=== PATIENT | female | born 1975 | race Caucasian/White ===

== ENCOUNTER 2016-09-05 15:36 | Observation (INO) | payer BC ==
[~2016-09-05 15:36] MED LIST: ADVIN50050 INH; ALBU1AER9 INH; DEXL60CA4 PO; LEVO25TA PO; NRN100 PO; PROM25TA16 PO; ZNTT/150 PO
[2016-09-05] MEDS ORDERED: LACTATED RINGER'S 1000ML 1,000 ML IV SCH ×2 (16:00→19:15)
[2016-09-05] MEDS ORDERED: LACTATED RINGER'S 1000ML 500 ML IV ONE (16:00)
[2016-09-05] MEDS ORDERED: MoRPHine SULFATE 2 MG/ML CARP IV STA (16:01)
[2016-09-05 16:12] LABS: URINE APPEARANCE CLEAR (CLEAR); URINE BILIRUBIN NEG (NEG); URINE COLOR YELLOW; URINE EPITHELIAL CELL AUTO >30 /lpf (0-5); URINE NITRITE NEG (NEG); URINE PH 6.5 (4.5-7.5); URINE SPECIFIC GRAVITY 1.014 (1.000-1.030); UROBILINOGEN NEG (NEG); ZZUR CULT IF INDIC CLEAN CATCH NO
[2016-09-05 16:13] LABS: MANUAL MICROSCOPIC REQUIRED? NO; REVIEW REQ? NO
[2016-09-05] MEDS ORDERED: NIFEdipine 10 MG CAP PO STA ×2 (16:35→18:10)
[2016-09-05 16:36] LABS: BASO % 0.1 %; BASO ABS # 0.01 K/uL (0-0.2); EOS % 0.3 %; HEMATOCRIT 34.3 % (37-47); IG% 0.3 %; LYMPH % 10.7 %; LYMPH ABS # 1.97 K/uL (1.2-3.4); MEAN CELL VOLUME 79.4 fL (80-100); MEAN CORPUSCULAR HEMOGLOBIN 25.9 pg (25-34); MEAN PLATELET VOLUME 9.3 fL (7.4-10.4); MONO % 6.1 %; NEUT % 82.5 %; PLATELET COUNT 360 K/uL (130-400); RED BLOOD COUNT 4.32 M/uL (4.2-5.4); WHITE BLOOD COUNT 18.34 K/uL (4.8-10.8)
[2016-09-05 16:40] LABS: COMPLETE YES; MEAN CORPUSCULAR HGB CONC 32.7 g/dl (32-36)
[2016-09-05] MEDS ORDERED: NIFEdipine 10 MG CAP ONE ×2 (16:45→18:06)
[2016-09-05] MEDS ORDERED: MoRPHine SULFATE 4 MG/ML 1 ML CARP\\VIAL SQ STA (17:00)
[2016-09-05 17:08] LABS: PARTIAL THROMBOPLASTIN RATIO 1.3; PROTHROMBIN TIME (PATIENT) 10.7 SECONDS (9.0-12.0)
[2016-09-05 17:17] LABS: ALB/GLOB RATIO 0.5 (0.9-2); ALKALINE PHOSPHATASE 115 U/L (45-117); ALT/SGPT 23 U/L (12-78); AST/SGOT 16 U/L (15-37); BLOOD UREA NITROGEN 10 mg/dl (7-18); BUN/CREATININE RATIO 14.5 (10-20); CALCIUM 8.6 mg/dl (8.5-10.1); CARBON DIOXIDE 23 mmol/L (21-32); CHLORIDE 104 mmol/L (98-107); CREATININE 0.66 mg/dl (0.60-1.20); GLUCOSE 77 mg/dl (70-99); POTASSIUM 3.9 mmol/L (3.5-5.1); SODIUM 136 mmol/L (136-145)
[2016-09-05] MEDS ORDERED: ALBUTEROL 0.5% NEB SOLN 2.5 MG/0.5 ML VIAL INH PRN (17:30)
[2016-09-05] MEDS ORDERED: ONDANSETRON INJ 2 MG/ML 2 ML VIAL IV PRN (17:45)
[2016-09-05] MEDS ORDERED: PROMETHAZINE HCL INJ 12.5 MG in SODIUM CHLORIDE 0.9% 50ML 50 ML IV PRN (17:45)
[2016-09-05] MEDS: FLUTICASONE/SALMETEROL (ADVAIR) 500/50 INH 14 PUFF INH SCH (18:25)
[2016-09-05] MEDS: LACTATED RINGER'S 1000ML 1,000 ML IV SCH (19:45)
[2016-09-05] MEDS ORDERED: NIFEdipine 10 MG CAP PO SCH (20:00)
[2016-09-05] MEDS ORDERED: IV FLUIDS COMPLETED PRN (20:15)
[2016-09-05] MEDS ORDERED: MoRPHine SULFATE 10 MG/ML CARP/VIAL SC STA (23:52)
[2016-09-06] MEDS ORDERED: GUAIFENESIN SUGAR FREE 100 MG/5 ML UDC PO PRN
[2016-09-06] MEDS: LACTATED RINGER'S 1000ML 1,000 ML IV SCH ×2 (00:43→08:54)
[2016-09-06] MEDS ORDERED: DEXLANSOPRAZOLE 60 MG CAPDR PO SCH (07:00)
[2016-09-06] MEDS ORDERED: NURSING VERBAL MED ORDER ONE (07:15)
[2016-09-06] MEDS ORDERED: TERBUTALINE SULFATE 1 MG/ML VIAL SQ ONE (07:30)
[2016-09-06] MEDS ORDERED: LEVOTHYROXINE 50 MCG TAB PO SCH (07:30)
[2016-09-06] MEDS: FLUTICASONE/SALMETEROL (ADVAIR) 500/50 INH 14 PUFF INH SCH (07:45)
[2016-09-06] MEDS ORDERED: PRENATAL VITAMIN TAB PO SCH (08:00)
--- NOTE | 2016-09-06 09:14 | Discharge Instructions ---
Discharge Instructions Date of Service Sep 06, 2016. Admission Reason for Admission: Uterine Contactions In Second Trimester Discharge Discharge Diagnosis / Problem: uterine irritability Discharge Goals Goal(s): Continuing OB care Activity Recommendations Activity Limitations: as noted below Lifting Limitations: no more than 10 pounds Exercise/Sports Limitations: as tolerated Shower/Bathe: no limitations Driving or Machine Use: no limitations . Instructions / Follow-Up Instructions / Follow-Up 2 weeks in office Current Hospital Diet Patient's current hospital diet: Regular OB Diet Discharge Diet Recommended Diet: Regular OB Diet Pending Studies Studies pending at discharge: no Medical Emergencies . Who to Call and When: Medical Emergencies: If at any time you feel your situation is an emergency, please call 911 immediately. . Non-Emergent Contact Non-Emergency issues call your: Primary Care Provider . . "Provider Documentation" section prepared by Milton Bettencourt. . VTE Core Measure Inpt VTE Proph given/why not?: Treatment not indicated
--- NOTE | 2016-09-06 09:16 | OB/GYN Progress Note ---
TRACK DRESSER Progress Note Date of Service Sep 06, 2016. Subjective conversation w/ patient, physical exam Ambulation: ambulating normally Voiding: no voiding problems Diet Tolerance: Regular Diet Objective Physical Exam General Appearance: WELL-APPEARING, NO APPARENT DISTRESS Abdomen: non tender, soft Fundus: Non-Tender Extremities: non-tender, normal inspection, no pedal edema, no calf tenderness Laboratory Results Last 24 Hours Test 09/05/16 15:33 09/05/16 15:40 09/05/16 16:25 Fibronectin NEGATIVE Urine Color YELLOW Urine Appearance CLEAR Urine pH 6.5 Urine Specific [place] 1.014 Urine Protein NEG Urine Glucose (UA) NEG Urine Ketones TRACE Urine Occult Blood NEG Urine Nitrite NEG Urine Bilirubin NEG Urine Urobilinogen NEG Urine Leukocyte Esterase TRACE Urine WBC (Auto) 1-5 /hpf Urine RBC (Auto) 5-10 /hpf Urine Hyaline Casts (Auto) 1-5 /lpf Urine Epithelial Cells (Auto) >30 /lpf Urine Bacteria (Auto) NEG White Blood Count 18.34 K/uL Red Blood Count 4.32 M/uL Hemoglobin 11.2 g/dL Hematocrit 34.3 % Mean Corpuscular Volume 79.4 fL Mean Corpuscular Hemoglobin 25.9 pg Mean Corpuscular Hemoglobin Concent 32.7 g/dl Platelet Count 360 K/uL Mean Platelet Volume 9.3 fL Neutrophils (%) (Auto) 82.5 % Lymphocytes (%) (Auto) 10.7 % Monocytes (%) (Auto) 6.1 % Eosinophils (%) (Auto) 0.3 % Basophils (%) (Auto) 0.1 % Neutrophils # (Auto) 15.14 K/uL Lymphocytes # (Auto) 1.97 K/uL Monocytes # (Auto) 1.12 K/uL Eosinophils # (Auto) 0.05 K/uL Basophils # (Auto) 0.01 K/uL RDW Standard Deviation 44.5 fL RDW Coefficient of Variation 15.4 % Immature Granulocyte % (Auto) 0.3 % Immature Granulocyte # (Auto) 0.05 K/uL Prothrombin Time 10.7 SECONDS Prothromb Time International Ratio 1.0 Activated Partial Thromboplast Time 32.5 SECONDS Partial Thromboplastin Ratio 1.3 Fibrinogen 647 mg/dl Sodium Level 136 mmol/L Potassium Level 3.9 mmol/L Chloride Level 104 mmol/L Carbon Dioxide Level 23 mmol/L Anion Gap 9.0 mmol/L Blood Urea Nitrogen 10 mg/dl Creatinine 0.66 mg/dl Estimated GFR () 129.0 Estimated GFR (Non- 111.3 BUN/Creatinine Ratio 14.5 Random Glucose 77 mg/dl Calcium Level 8.6 mg/dl Total Bilirubin 0.3 mg/dl Aspartate Amino Transf (AST/SGOT) 16 U/L Alanine Aminotransferase (ALT/SGPT) 23 U/L Alkaline Phosphatase 115 U/L Lactate Dehydrogenase 144 U/L Total Protein 7.2 gm/dl Albumin 2.5 gm/dl Globulin 4.7 gm/dl Albumin/Globulin Ratio 0.5 Assessment and Plan Continue Routine Care: discharged home not in labor follow up in 2 weeks
--- NOTE | 2016-09-13 10:16 | Discharge Summary ---
Discharge Summary Date of Service Sep 13, 2016. Discharge Summary Admission Date: Sep 05, 2016 at 19:14 Discharge Date: Sep 06, 2016 Discharge Disposition: Home Primary Diagnosis: pretrm contractions Pending Studies/Follow-Up: none Discharge Instructions Activity Recommendations: exercise/sex/sports limit Return to School/Work: no limitations Diet At Discharge: Regular OB Allergies: Coded Allergies: Metoclopramide (Verified Allergy, Unknown, hallucinations, 01/11/15) Home Health Services: none Special Care: Call your doctor if: * Temperature above 101 degrees * Pain not relieved by pain medicine ordered * There is increased drainage or redness from any incision * You have any unanswered questions or concerns. Avoid all tobacco products. If you need help to stop smoking, call [place]'s FREE QUITLINE at . This is a free call. Hospital Course patient placed on monitor. not dilated. fibronectin done and negative. Total time spent on discharge = This includes examination of the patient, discharge planning, medication reconciliation, and communication with other providers.
== END 2016-09-06 10:16 | disposition home or self-care (01) ==
LOC: C.OPB 15:36 → C.LD 15:37 → C.OPB 17:29 → C.OBG 19:14
PROVIDERS: ADMIT Obstetrics & Gynecology; ATTEND Obstetrics & Gynecology
DX: Z34.82 Encounter for supervision of other normal pregnancy, second trimester (principal)

== ENCOUNTER 2016-09-07 14:46 | Outpatient (CLI) | payer BC ==
[2016-09-07] MEDS ORDERED: LACTATED RINGER'S 1000ML 1,000 ML IV SCH (15:57)
[2016-09-07] MEDS ORDERED: TERBUTALINE SULFATE 1 MG/ML VIAL SQ STA (15:57)
[2016-09-07] MEDS ORDERED: LACTATED RINGER'S 1000ML 500 ML IV ONE (15:57)
[2016-09-07] MEDS ORDERED: ACETAMINOPHEN 325 MG TAB PO PRN (16:00)
[2016-09-07] MEDS ORDERED: MAGNESIUM SULFATE / WTR 1,000 ML IV SCH (16:08)
[2016-09-07] MEDS ORDERED: BETAMETH SOD PHOS/ACETATE IA 6 MG/ML IM ONE (16:15)
[2016-09-07 16:18] LABS: BASO % 0.1 %; BASO ABS # 0.02 K/uL (0-0.2); COMPLETE YES; EOS % 0.5 %; HEMATOCRIT 33.6 % (37-47); IG% 0.4 %; LYMPH % 10.4 %; LYMPH ABS # 1.72 K/uL (1.2-3.4); MEAN CELL VOLUME 78.9 fL (80-100); MEAN CORPUSCULAR HEMOGLOBIN 26.3 pg (25-34); MEAN CORPUSCULAR HGB CONC 33.3 g/dl (32-36); MEAN PLATELET VOLUME 9.1 fL (7.4-10.4); MONO % 6.2 %; NEUT % 82.4 %; PLATELET COUNT 342 K/uL (130-400); RED BLOOD COUNT 4.26 M/uL (4.2-5.4); WHITE BLOOD COUNT 16.58 K/uL (4.8-10.8)
[2016-09-07] MEDS ORDERED: MoRPHine SULFATE 2 MG/ML CARP IV STA (16:20)
[2016-09-07] MEDS ORDERED: MAGNESIUM SULFATE 4GM / WTR 100ML IV ONE (16:30)
== END 2016-09-07 17:55 | disposition short-term general hospital (02) ==
LOC: C.LD 14:46 → C.OPB 14:46
PROVIDERS: ATTEND Obstetrics & Gynecology
DX: O62.9 Abnormality of forces of labor, unspecified (principal); Z3A.36 36 weeks gestation of pregnancy; O09.522 Supervision of elderly multigravida, second trimester; O99.612 Diseases of the digestive system complicating pregnancy, second trimester; K21.9 Gastro-esophageal reflux disease without esophagitis; K31.84 Gastroparesis; O99.282 Endocrine, nutritional and metabolic diseases complicating pregnancy, second trimester; O99.212 Obesity complicating pregnancy, second trimester; E66.9 Obesity, unspecified

== ENCOUNTER 2016-12-06 09:40 | Inpatient (IN) | payer BC ==
[~2016-12-06] VITALS: Ht 152.4 cm; Wt 95.0 kg
[2016-12-06] MEDS ORDERED: LABETALOL HCL IV 5 MG/ML 20ML IV PRN (10:15)
[2016-12-06 10:30] LABS: BASO % 0.1 %; BASO ABS # 0.02 K/uL (0-0.2); EOS % 0.5 %; HEMATOCRIT 32.6 % (37-47); IG% 0.9 %; LYMPH % 12.4 %; LYMPH ABS # 1.88 K/uL (1.2-3.4); MEAN CELL VOLUME 73.1 fL (80-100); MEAN CORPUSCULAR HEMOGLOBIN 23.8 pg (25-34); MEAN PLATELET VOLUME 10.3 fL (7.4-10.4); MONO % 3.7 %; NEUT % 82.4 %; PLATELET COUNT 332 K/uL (130-400); RED BLOOD COUNT 4.46 M/uL (4.2-5.4); WHITE BLOOD COUNT 15.18 K/uL (4.8-10.8)
[2016-12-06] MEDS ORDERED: DINOPROSTONE 10 MG INSERT PV ONE ×2 (10:30→23:00)
[2016-12-06] MEDS ORDERED: MAGNESIUM SULFATE 4GM / WTR 100ML IV ONE ×2 (10:30→10:50)
[2016-12-06 10:39] LABS: INR 0.9 (0.9-1.1); PARTIAL THROMBOPLASTIN RATIO 1.1; PROTHROMBIN TIME (PATIENT) 9.8 SECONDS (9.0-12.0)
[2016-12-06 10:40] LABS: COMPLETE YES; MEAN CORPUSCULAR HGB CONC 32.5 g/dl (32-36)
[2016-12-06 10:54] LABS: ALT/SGPT 19 U/L (12-78); AST/SGOT 14 U/L (15-37); BLOOD UREA NITROGEN 18 mg/dl (7-18); BUN/CREATININE RATIO 18.4 (10-20); CALCIUM 8.9 mg/dl (8.5-10.1); CARBON DIOXIDE 22 mmol/L (21-32); CHLORIDE 106 mmol/L (98-107); CREATININE 0.96 mg/dl (0.60-1.20); GLUCOSE 99 mg/dl (70-99); POTASSIUM 3.9 mmol/L (3.5-5.1); SODIUM 136 mmol/L (136-145); URIC ACID 7.3 mg/dl (2.6-7.2)
[2016-12-06] MEDS: LACTATED RINGER'S 1000ML 1,000 ML IV PRN (10:59)
[2016-12-06] MEDS ORDERED: MAGNESIUM SULFATE / WTR 1,000 ML IV SCH (11:00)
--- NOTE | 2016-12-06 11:16 | HISTORY & PHYSICAL EXAMINATION ---
DATE OF ADMISSION: 12/06/2016 CHIEF COMPLAINT: Elevated blood pressures at 39 weeks and 5 days gestation. HISTORY OF PRESENT ILLNESS: The patient is a 41-year-old 3, para 0 at 39 weeks and 5 days gestation, who was sent over to labor and delivery secondary to having elevated blood pressures in the office. This morning on a routine OB visit in the office, she was found to have a blood pressure of 160s/100s with urine protein dip showing 4+. Therefore, she was sent over for management. The patient herself stated that she is not really having any symptoms. She denies any headaches, right upper quadrant abdominal pain or changes in vision. Her only complaint was abdominal itching for the past 4 days. On arrival to labor and delivery, her blood pressures remained elevated at 163/86. Therefore, the patient will be admitted to labor and delivery for severe preeclampsia. Her care has been complicated with contractions. She was given steroids at 26 weeks and 6 days gestation and was admitted to [facility] in [place] for labor. She eventually stopped jacqueline and remained asymptomatic from there on. She also has a history of hypothyroidism and gastroparesis with GERD and asthma. PAST MEDICAL HISTORY: Significant for AMA. She self disseminated for this . History of hypothyroidism, Rh negative, asthma, gastroparesis with GERD and class 2 obesity. PAST SURGICAL HISTORY: Significant for endoscopy and eye surgery. She had 2 spontaneous miscarriages, both in 2016. CURRENT MEDICATIONS: vitamins, iron supplement, vitamin C, Dexilant 60 mg daily, levothyroxine 50 mcg daily, and Advair Diskus 1 puff b.i.d. ALLERGIES: REGLAN CAUSES HALLUCINATIONS. LABS: Blood type is A negative, group B strep negative, rubella immune, hepatitis B surface antigen negative, RPR nonreactive, and HIV negative. PHYSICAL EXAMINATION: VITAL SIGNS: Blood pressure is 163/86, heart rate of 107, respiration rate of 20, and temperature of 98.4. GENERAL: The patient is awake, alert, and oriented x3. She is in no acute distress. She denies headache, blurred vision or upper abdominal pain. HEART: Regular rate and rhythm. LUNGS: Clear to auscultation bilaterally. ABDOMEN: Gravid uterus. position is vertex via ultrasound in the office. Bowel sounds present x4. EXTREMITIES: No clubbing, cyanosis or calf tenderness. VAGINAL EXAM: She is close, thick, and high. heart tones are category 1 with a baseline of 140 with moderate variability, positive accelerations. No decelerations. EXTREMITIES: No clubbing, cyanosis or calf tenderness. ASSESSMENT AND PLAN: A 41-year-old 3, para 0 at 39 weeks and 5 days gestation will be admitted to labor and delivery for severe preeclampsia. PIH labs ordered. We begin magnesium sulfate per protocol and Cervidil intravaginally for labor induction. MTDD
[2016-12-06 12:27] VITALS: Ht 152.4 cm; Wt 95.0 kg
[2016-12-06] MEDS: PANTOprazole SOD 40 MG TAB PO SCH (15:42)
[2016-12-06] MEDS: BUTORPHANOL TARTRATE 1 MG/ML VIAL IV PRN ×2 (15:58→23:46)
[2016-12-06] MEDS ORDERED: PROMETHAZINE HCL INJ 25 MG in SODIUM CHLORIDE 0.9% 50ML 50 ML IV PRN (23:00)
[2016-12-06] MEDS ORDERED: LACTATED RINGER'S 1000ML 500 ML IV PRN (23:11)
[2016-12-06] MEDS ORDERED: ALBUTEROL HFA 8 GM INHALER INH PRN (23:15)
[2016-12-06] MEDS ORDERED: OXYTOCIN 30 UNITS/500ML NSS IV PRN (23:15)
[2016-12-06] MEDS: FLUTICASONE/SALMETEROL (ADVAIR) 500/50 INH 14 PUFF INH SCH (23:35)
[2016-12-07] MEDS ORDERED: EpHEDrine SULFATE INJ 50 MG/ML AMP ONE (01:02)
[2016-12-07] MEDS ORDERED: BUPIVACAINE 0.25% 30 ML VIAL ONE ×2 (01:02→06:10)
[2016-12-07] MEDS ORDERED: FENTANYL CITRATE INJ 50 MCG/1 ML 2 ML VIAL ONE ×2 (01:03→06:11)
[2016-12-07] MEDS ORDERED: FENTANYL 2MCG/ML ROPIV 1.25MG/ML 100ML BAG EPI ONE (01:03)
[2016-12-07] MEDS ORDERED: NALOXONE HCL INJ 1 MG in SODIUM CHLORIDE 0.9% 1000ML 1,000 ML IV PRN ×5 (02:04→16:56)
[2016-12-07] MEDS ORDERED: LACTATED RINGER'S 1000ML 500 ML IV PRN ×2 (02:04→16:56)
[2016-12-07] MEDS ORDERED: DiphenhydrAMINE HCL 50 MG/ML VIAL IV PRN ×2 (02:15→17:00)
[2016-12-07] MEDS ORDERED: EpHEDrine SULFATE INJ 50 MG/ML AMP IV PRN ×2 (02:15→17:00)
[2016-12-07] MEDS ORDERED: NALOXONE HCL INJ 0.4 MG/1 ML VIAL/CARP IV PRN (02:15)
[2016-12-07] MEDS ORDERED: ONDANSETRON INJ 2 MG/ML 2 ML VIAL IV PRN (02:15)
[2016-12-07] MEDS ORDERED: NALBUPHINE HCL INJ 10 MG/ML AMP IV PRN ×2 (02:15→17:00)
[2016-12-07] MEDS ORDERED: PROMETHAZINE HCL INJ 25 MG in SODIUM CHLORIDE 0.9% 50ML 50 ML IV PRN ×2 (02:15→16:45)
[2016-12-07] MEDS: LACTATED RINGER'S 1000ML 1,000 ML IV PRN (05:51)
[2016-12-07] MEDS ORDERED: LIDOCAINE HCL 2% JELLY 30 ML TUBE EXT ONE (05:52)
--- NOTE | 2016-12-07 06:25 | Anesthesiology Progress Note ---
Post OP Pain Management Date & Time of Service Dec 07, 2016 at 06:22 Subjective Therapies: Epidural/IV Drugs, Marcaine, Fentanyl pain is 6/10 Objective Cathether Site: examined, palpated, intact, dry, non-tender, without erythma, without exudate Assessment & Plan Pain Relief Assessment: will bolus epidural Plan: at 0619,pt epidural bolused with 12 ml 0.17%bupivacaine + 100 mcgs fentanyl; neg.aspiration;vital signs stable
[2016-12-07] MEDS: FENTANYL 2MCG/ML ROPIV 1.25MG/ML 100ML BAG EPI PRN ×2 (07:02→09:30)
[2016-12-07] MEDS: LEVOTHYROXINE 25 MCG TAB PO SCH (07:35)
[2016-12-07 09:32] LABS: BASO % 0.2 %; BASO ABS # 0.03 K/uL (0-0.2); COMPLETE YES; EOS % 0.1 %; HEMATOCRIT 32.2 % (37-47); IG% 1.8 %; LYMPH % 9.4 %; LYMPH ABS # 1.83 K/uL (1.2-3.4); MEAN CORPUSCULAR HEMOGLOBIN 23.4 pg (25-34); MEAN PLATELET VOLUME 10.7 fL (7.4-10.4); MONO % 4.6 %; NEUT % 83.9 %; PLATELET COUNT 342 K/uL (130-400); RED BLOOD COUNT 4.41 M/uL (4.2-5.4)
[2016-12-07 09:34] LABS: INR 0.9 (0.9-1.1); PARTIAL THROMBOPLASTIN RATIO 1.1; PROTHROMBIN TIME (PATIENT) 9.4 SECONDS (9.0-12.0)
[2016-12-07 09:41] LABS: CALCIUM 8.7 mg/dl (8.5-10.1); CREATININE 1.4 mg/dl (0.60-1.20); POTASSIUM 4.4 mmol/L (3.5-5.1)
[2016-12-07 09:44] LABS: ALB/GLOB RATIO 0.5 (0.9-2)
[2016-12-07] MEDS: FLUTICASONE/SALMETEROL (ADVAIR) 500/50 INH 14 PUFF INH SCH ×2 (10:54→21:25)
[2016-12-07] MEDS ORDERED: PROMETHAZINE HCL INJ 12.5 MG in SODIUM CHLORIDE 0.9% 50ML 50 ML IV PRN ×2 (11:15→17:00)
[2016-12-07] MEDS ORDERED: LACTATED RINGER'S 1000ML 1,000 ML IV SCH (13:58)
[2016-12-07] MEDS ORDERED: CITRIC ACID/SODIUM CITRATE 15 ML UDC PO ONE (14:15)
[2016-12-07 14:55] LABS: MAGNESIUM THERAPEUTIC(L&DONLY) 8.3 mg/dl (1.8-2.4)
[2016-12-07] MEDS ORDERED: CEFAZOLIN IV 2,000 MG in DEXTROSE 5% 50ML 50 ML IV SCH (15:00)
[2016-12-07 15:19] LABS: BUN/CREATININE RATIO 12.4 (10-20); CREATININE 1.8 mg/dl (0.60-1.20)
[2016-12-07 15:22] LABS: ALB/GLOB RATIO 0.5 (0.9-2); POTASSIUM 4.5 mmol/L (3.5-5.1)
[2016-12-07] MEDS ORDERED: CALCIUM GLUCONATE 10% 1,000 MG in SODIUM CHLORIDE 0.9% 50ML 50 ML IV ONE (15:30)
[2016-12-07] MEDS ORDERED: MoRPHine SULFATE PF 1 MG/ML 10 ML AMP/VIAL ONE (16:03)
[2016-12-07] MEDS ORDERED: ONDANSETRON INJ 2 MG/ML 2 ML VIAL ONE (16:14)
[2016-12-07] MEDS ORDERED: OXYTOCIN INJ 10 UNITS/ML VIAL ONE (16:14)
[2016-12-07] MEDS ORDERED: SUPERCREAM 0.870 % 15GM JAR EXT PRN (16:45)
[2016-12-07] MEDS ORDERED: BENZOCAINE 20% AER SPR 82.5 GM CAN EXT PRN (16:45)
[2016-12-07] MEDS ORDERED: SENNA 8.6 MG TAB PO PRN (16:45)
[2016-12-07] MEDS ORDERED: DIPHTHERIA/TETANUS/PERTUSSIS 0.5 ML SYR/VIAL IM. ONE (16:45)
[2016-12-07] MEDS ORDERED: LANOLIN OINT EXT PRN ×2 (16:45)
[2016-12-07] MEDS ORDERED: HYDROCORTISONE ACETATE 25 MG SUPP PR PRN (16:45)
[2016-12-07] MEDS ORDERED: MEASLES, MUMPS & RUBELLA VIRUS VIAL SQ. ONE (16:45)
[2016-12-07] MEDS ORDERED: NALOXONE HCL INJ 0.08 MG in SYRINGE 1.8 ML IV PRN (16:56)
[2016-12-07] MEDS ORDERED: SODIUM CHLORIDE 0.9% 1000ML 1,000 ML IV PRN (16:56)
--- NOTE | 2016-12-07 16:56 | Anesthesia Procedure Note ---
Anesthesia Epidural Removal Nt Date & Time Dec 07, 2016 at 16:56 Vital Signs Pain Intensity: 5.0 Notes Mental Status: alert / awake / arousable, participated in evaluation Nausea / Vomiting: adequately controlled Pain: adequately controlled Airway Patency, RR, SpO2: stable & adequate BP & HR: stable & adequate Hydration State: stable & adequate Neuraxial Anesthesia: was administered, sensory block is resolving Anesthetic Complications: no major complications apparent, pt satisfied with anesthetic care Epidural: removed without complications, with tip intact
[2016-12-07] MEDS ORDERED: MoRPHine SULFATE PF 1 MG/ML 10 ML AMP/VIAL EPI PRN (17:00)
[2016-12-07] MEDS ORDERED: NALOXONE HCL 0.4 MG/1 ML VIAL/CARP IV PRN (17:00)
[2016-12-07] MEDS ORDERED: NO NARCOTICS OR SEDATIVES SCH (17:00)
[2016-12-07 18:33] LABS: HEMATOCRIT 29.4 % (37-47); MEAN CELL VOLUME 73.3 fL (80-100); MEAN CORPUSCULAR HEMOGLOBIN 23.4 pg (25-34); MEAN PLATELET VOLUME 9.8 fL (7.4-10.4); PLATELET COUNT 359 K/uL (130-400); RED BLOOD COUNT 4.01 M/uL (4.2-5.4); WHITE BLOOD COUNT 25.79 K/uL (4.8-10.8)
[2016-12-07] MEDS: SODIUM CHLORIDE 0.9% 1000ML 1,000 ML IV SCH (18:40)
[2016-12-07] MEDS: OXYTOCIN INJ 20 UNITS in SODIUM CHLORIDE 0.9% 1000ML 1,000 ML IV SCH (18:52)
[2016-12-07] MEDS: SIMETHICONE 80 MG CHEW PO SCH ×2 (18:53→21:24)
[2016-12-07 19:00] LABS: CREATININE 1.8 mg/dl (0.60-1.20)
[2016-12-07 19:01] LABS: ALB/GLOB RATIO 0.5 (0.9-2); BUN/CREATININE RATIO 12.3 (10-20); CALCIUM 8.1 mg/dl (8.5-10.1); MAGNESIUM 6.7 mg/dl (1.8-2.4); POTASSIUM 4.5 mmol/L (3.5-5.1)
[2016-12-07] MEDS: MoRPHine SULFATE 2 MG/ML CARP IV PRN (19:17)
[2016-12-07 19:33] VITALS: BP 158/63; PULSE 119; O2SAT 95
--- NOTE | 2016-12-07 19:37 | NEPHROLOGY CONSULTATION ---
DATE OF CONSULTATION: 12/07/2016 ATTENDING OF RECORD: UI DEVELOPER DESIGNER. CONSULTING PHYSICIAN: Dr. Wiseman. HISTORY OF PRESENT ILLNESS: This is a 41-year-old female patient who is 39 weeks and was found to be hypertensive, blood pressures was 160s/100s, 4+ protein in the office. Pt does have an underlying hypothyroidism as well. The patient had a creatinine of 0.96 on admission. Blood pressure when she came in to the hospital was in the 160s/80s. The patient started on magnesium infusion. Creatinine next morning was 1.4. Her magnesium level last night was 7.3. This morning her magnesium has remained in the low 8s, they did lower the magnesium infusion and then eventually stopped the magnesium infusion. Blood pressure is 120s/80s and has remained persistently mildly tachycardic. Liver enzymes were normal this morning. EKG done shows sinus tachycardia, otherwise asymptomatic. PAST MEDICAL HISTORY: Hypothyroidism, asthma, GERD. PAST SURGICAL HISTORY: Eye surgery. FAMILY HISTORY: No renal disease in family. SOCIAL HISTORY: No smoking, no alcohol, no drugs. MEDICATIONS: Lactated Ringer's, Protonix 40 mg a day, Advair inhaler twice a day, Synthroid 50 mcg daily. REVIEW OF SYSTEMS: The patient comfortable, epidural in place. No shortness of breath. No chest pain, no headaches, no blurry vision. No rash or itching. All other review of systems otherwise negative. PHYSICAL EXAMINATION: VITAL SIGNS: Blood pressure 125/64, pulse 112, respiratory rate is 20, sat 89% on room air, temperature 98.5. GENERAL: Awake, alert, oriented x3. EYES: No scleral icterus. ENT: Moist mucous membranes. NECK: Supple. PULMONARY: Clear to auscultation. CARDIAC: Tachy. ABDOMEN: Distended. EXTREMITIES: Mild edema. NEUROLOGICALLY: Epidural in place, otherwise nonfocal. LABORATORIES: Morning labs - sodium level 130, potassium 4.4, chloride is 99, bicarbonate is 19, BUN is 20, creatinine is 1.4, glucose 93, and calcium is 8.7. Magnesium level last checked at 2:00 p.m. was 8.3. AST, ALT 22 and 16, albumin 2.3. INR is 0.9. White count is 19.5, H&H 10.3 and 32.2, and platelet count 342. IMPRESSION AND PLAN: 1. Oliguric acute kidney injury in the setting of hypertension and proteinuria in a patient with advanced maternal age, who presented hypertension with blood pressure 160s/80s. Albumins low in the 2s and a creatinine is worsening from 0.9 to 1.4. Repeat labs have been added on and are pending. Bragg catheter in place. Urination is trending down. Switch to normal saline at 125 an hour. Spoke to anesthesia who is going to be aggressively hydrating her during the procedure. For now, will go with aggressive hydration and then once out of the OR, will consider intermittent doses of Lasix to help stimulate urine output. May need a renal ultrasound, once stabilized after procedure. Perhaps may have had some hemodynamic compromise from the elevated blood pressures trending down. For now, aggressive hydration. 2. Hypermagnesemia. Magnesium levels in the 8, magnesium infusion has been stopped. EKG does not show any cardiac abnormalities other than sinus tachycardia. Does not have hypotension and does not have bradycardia. At this point, no emergent need for dialysis. Would like to hydrate the patient to stimulate urine output, giving calcium infusion and hydrate her aggressively and treating with intermittent Lasix once hydrated well. If magnesium level continues to worsen or if there is neurologic symptoms and/or cardiac symptoms, may need temporary dialysis to help lower the magnesium levels. We will follow magnesium levels closely. Recommend the patient be monitored in the telemetry setting given the risk for cardiac abnormalities. Appreciate consultation. VASHTI
[2016-12-07 19:43] VITALS: TEMP 37
--- NOTE | 2016-12-07 20:27 | OB/GYN Progress Note ---
CAN STACKER Progress Note Date of Service: Dec 07, 2016. Postop check Patient is seen and examined In Telemetry unit Feels much better, no complaints, little bit sore Pain is under control with meds No CP/ SOB/ Dizziness/ N&V/ VB/ Leg pain Not OOB yet Tolerating clears and crackers Explained about the surgery and findings Large posterior fibroid Plans to breast feed her baby Date Time Temp Pulse Resp B/P (MAP) Pulse Ox O2 Delivery O2 Flow Rate FiO2 12/07/16 19:43 37.0 12/07/16 19:33 119 24 158/63 (94) 95 Room Air 12/07/16 17:55 110 20 155/91 96 Room Air 12/07/16 17:50 110 17 169/91 95 Room Air 12/07/16 17:45 37.5 110 21 167/91 95 Room Air 12/07/16 17:35 111 22 150/96 98 Room Air 12/07/16 17:25 104 16 168/90 98 Room Air 12/07/16 17:15 108 21 148/101 98 Room Air 12/07/16 17:05 113 19 151/78 98 Room Air 12/07/16 16:55 114 19 136/81 98 Room Air 12/07/16 16:48 37.6 108 24 136/84 94 Room Air PE: General: Alert, orientedx3, NAD CVS: S1S2 RRR, mild tachycardia Lungs: CTAB Abd: soft, appropriately tender, BS+, Incision/ dressing C/D/I, fundus firm Lochia minimal Ext: NT, 2+/2+ edema, SCD's on Last 24 Hours Test 12/06/16 21:46 12/07/16 06:12 12/07/16 08:55 12/07/16 11:01 Magnesium Level 8.0 mg/dl 7.3 mg/dl 8.2 mg/dl White Blood Count 19.50 K/uL Red Blood Count 4.41 M/uL Hemoglobin 10.3 g/dL Hematocrit 32.2 % Mean Corpuscular Volume 73.0 fL Mean Corpuscular Hemoglobin 23.4 pg Mean Corpuscular Hemoglobin Concent 32.0 g/dl Platelet Count 342 K/uL Mean Platelet Volume 10.7 fL Neutrophils (%) (Auto) 83.9 % Lymphocytes (%) (Auto) 9.4 % Monocytes (%) (Auto) 4.6 % Eosinophils (%) (Auto) 0.1 % Basophils (%) (Auto) 0.2 % Neutrophils # (Auto) 16.37 K/uL Lymphocytes # (Auto) 1.83 K/uL Monocytes # (Auto) 0.90 K/uL Eosinophils # (Auto) 0.02 K/uL Basophils # (Auto) 0.03 K/uL RDW Standard Deviation 46.4 fL RDW Coefficient of Variation 17.6 % Immature Granulocyte % (Auto) 1.8 % Immature Granulocyte # (Auto) 0.35 K/uL Prothrombin Time 9.4 SECONDS Prothromb Time International Ratio 0.9 Activated Partial Thromboplast Time 27.7 SECONDS Partial Thromboplastin Ratio 1.1 Sodium Level 130 mmol/L Potassium Level 4.4 mmol/L Chloride Level 99 mmol/L Carbon Dioxide Level 19 mmol/L Anion Gap 12.0 mmol/L Blood Urea Nitrogen 20 mg/dl Creatinine 1.40 mg/dl Est Creatinine Clear Calc Drug Dose 55.1 ml/min Estimated GFR () 54.3 Estimated GFR (Non- 46.9 BUN/Creatinine Ratio 14.0 Random Glucose 93 mg/dl Calcium Level 8.7 mg/dl Total Bilirubin 0.3 mg/dl Aspartate Amino Transf (AST/SGOT) 22 U/L Alanine Aminotransferase (ALT/SGPT) 16 U/L Alkaline Phosphatase 181 U/L Lactate Dehydrogenase 191 U/L Total Protein 7.1 gm/dl Albumin 2.3 gm/dl Globulin 4.8 gm/dl Albumin/Globulin Ratio 0.5 Test 12/07/16 14:07 12/07/16 15:34 12/07/16 18:18 Sodium Level 130 mmol/L 132 mmol/L Potassium Level 4.5 mmol/L 4.5 mmol/L Chloride Level 97 mmol/L 101 mmol/L Carbon Dioxide Level 19 mmol/L 18 mmol/L Anion Gap 14.0 mmol/L 13.0 mmol/L Blood Urea Nitrogen 22 mg/dl 22 mg/dl Creatinine 1.80 mg/dl 1.80 mg/dl Est Creatinine Clear Calc Drug Dose 42.8 ml/min 42.8 ml/min Estimated GFR () 40.1 40.1 Estimated GFR (Non- 34.6 34.6 BUN/Creatinine Ratio 12.4 12.3 Random Glucose 87 mg/dl 113 mg/dl Calcium Level 9.0 mg/dl 8.1 mg/dl Magnesium Level 8.3 mg/dl 6.7 mg/dl Total Bilirubin 0.4 mg/dl 0.3 mg/dl Aspartate Amino Transf (AST/SGOT) 21 U/L 19 U/L Alanine Aminotransferase (ALT/SGPT) 17 U/L 16 U/L Alkaline Phosphatase 198 U/L 169 U/L Total Protein 7.3 gm/dl 6.3 gm/dl Albumin 2.4 gm/dl 2.1 gm/dl Globulin 4.9 gm/dl 4.2 gm/dl Albumin/Globulin Ratio 0.5 0.5 White Blood Count 25.79 K/uL Red Blood Count 4.01 M/uL Hemoglobin 9.4 g/dL Hematocrit 29.4 % Mean Corpuscular Volume 73.3 fL Mean Corpuscular Hemoglobin 23.4 pg Mean Corpuscular Hemoglobin Concent 32.0 g/dl RDW Standard Deviation 47.2 fL RDW Coefficient of Variation 17.8 % Platelet Count 359 K/uL Mean Platelet Volume 9.8 fL Nucleated RBC Absolute Count (auto) 0.06 K/uL Nucleated Red Blood Cells % 0.2 % AP: 41 yo female s/p Csection for arrest of descent, preeclampsia with severe features, worsening renal fx, s/p magnesium seizure prophylaxis, pod#0 VSS, mild tachycardia, Afebrile doing better Magnesium level getting better Creatinine stable Low UOP Appreciate nephrology consult Continue to monitor closely Labs in am
[2016-12-07] MEDS ORDERED: MEPERIDINE HCL 50 MG/ML CARP ONE (21:20)
[2016-12-07] MEDS: DOCUSATE SODIUM 100 MG CAP PO SCH (21:24)
[2016-12-07] MEDS ORDERED: GABAPENTIN 100 MG CAP PO SCH (22:00)
[2016-12-07 22:58] LABS: BUN/CREATININE RATIO 12.3 (10-20); CALCIUM 8.4 mg/dl (8.5-10.1); CREATININE 1.8 mg/dl (0.60-1.20); MAGNESIUM 5.8 mg/dl (1.8-2.4); POTASSIUM 4.4 mmol/L (3.5-5.1)
--- NOTE | 2016-12-07 23:12 | OPERATIVE REPORT ---
DATE OF OPERATION: 12/07/2016 PREOPERATIVE DIAGNOSIS: The patient is a 41-year-old G1, P0 at 39 weeks and 6 days of gestation, admitted for induction of labor at term for preeclampsia with severe features, arrest of descent in second stage of labor, cephalopelvic disproportion and worsening renal function. POSTOPERATIVE DIAGNOSIS: Same. PROCEDURE: Primary low transverse via Pfannenstiel skin incision. SURGEON: Dr. Turner. SUPPLIER DIVERSITY DIRECTOR: Dr. Cruz. ESTIMATED BLOOD LOSS: 600. FLUIDS: 2000 mL of normal saline. SPECIMENS: Placenta and cord blood. DRAINS: Bragg drained about 25 mL of dark urine. ANESTHESIA: Epidural, Dr. Garcia. COMPLICATIONS: None. FINDINGS: Baby was in cephalic presentation. Viable male . Apgars 8/9. Maternal findings; Uterus was noted to have a 12 x 10 cm subserosal fibroid ( with intramural component) on the lower posterior uterine wall. Normal fallopian tubes and ovaries. DESCRIPTION OF PROCEDURE: The patient was taken to the operating room where epidural anesthesia was given to be adequate. She was placed in dorsal supine position with a leftward tilt. She was prepared and draped in usual sterile fashion. A Pfannenstiel skin incision was made and carried through to the underlying layer of fascia with the Bovie. The fascia was incised in the midline and incision extended laterally with the help of Stallings scissors. Lower aspect of the fascial incision was grasped with 2 Bob clamps, elevated, underlying rectus muscles were dissected off sharply and an upper aspect of the fascial incision was then grasped with 2 Bob clamps, elevated, underlying rectus muscles were dissected sharply with Stallings scissors. Rectus muscles were in the midline and peritoneum was entered bluntly. Incision was extended superiorly and inferiorly with good visualization of the bladder. Bladder blade was inserted. Vesicouterine peritoneum was identified, grasped with pickups, entered sharply with Metzenbaum scissors and the lower uterine segment was incised in a transverse fashion and incision extended laterally with the help of fingers and meconium-stained fluid was obtained. Baby's head was delivered without difficulty. Shoulders were delivered with minimal traction. Mouth and nose were suctioned. Cord was clamped x2 and cut. It was a 3-vessel cord. Baby was handed off to the awaiting tour consultant. Then placenta was delivered manually as intact and complete. Uterus was exteriorized, cleared of all clots and debris. The uterine incision was repaired with 0 Vicryl in a running locked fashion and a second imbricating layer was placed with 3-0 Vicryl in a running fashion and excellent hemostasis was achieved. The vesicouterine peritoneum was also reapproximated with 3-0 Vicryl in a running fashion. The posterior cul-de-sac was irrigated with warm normal saline and suctioned. A 12 x 10 cm fibroid was visualized on the lower posterior uterine wall. It appeared to be subserosal with intramural component and the rest of the uterus, fallopian tubes and ovaries were normal. Uterus was returned to the abdomen and pelvis was irrigated with warm normal saline and suctioned. Incision was checked to be again hemostatic. Parietal peritoneum was reapproximated with 3-0 Vicryl in a running fashion. Rectus muscles were reapproximated with 3-0 Vicryl in a running with U-type sutures. Rectus fascia was reapproximated with 0 Vicryl in a running fashion. Subcuticular fat tissue was brought together with 3-0 Vicryl in a running fashion. Skin was closed with 4-0 Monocryl in a subcuticular fashion. The patient tolerated the procedure well. Sponge, lap, needle and instrument counts were correct x3. Baby was a viable male infant. Apgars 8/9. No complications happened. I was and Dr. Cruz was present during the whole procedure. I attest to the content of the Intraoperative Record and any orders documented therein. Any exceptions are noted below. VASHTI
[2016-12-07 23:13] VITALS: BP 150/81; PULSE 105; TEMP 37.1; O2SAT 96
[2016-12-08] MEDS: SODIUM CHLORIDE 0.9% 1000ML 1,000 ML IV SCH ×3 (01:30→15:30)
[2016-12-08] MEDS: OXYTOCIN INJ 20 UNITS in SODIUM CHLORIDE 0.9% 1000ML 1,000 ML IV SCH (01:31)
[2016-12-08 03:50] VITALS: BP 171/82; PULSE 97; TEMP 36.7; O2SAT 97
[2016-12-08] MEDS: MoRPHine SULFATE 2 MG/ML CARP IV PRN (03:56)
[2016-12-08 04:00] VITALS: BP 147/79
[2016-12-08] MEDS ORDERED: CEFAZOLIN IV 2,000 MG in DEXTROSE 5% 50ML 50 ML IV SCH (06:00)
--- NOTE | 2016-12-08 06:04 | Nephrology Progress Note ---
Nephrology Progress Note Date of Service: Dec 08, 2016. Subjective 41 yo female with pih, kristine, oliguria, hypermagnesemia who underwent yesterday afternoon and now has a significant amount of urine in the lamar catheter. getting 275cc of normal saline an hour and tolerating the fluids well. pts incision wrapped. magnesium levels trending down. Objective Date Time Temp Pulse Resp B/P (MAP) Pulse Ox O2 Delivery O2 Flow Rate FiO2 12/08/16 04:00 147/79 (101) 12/08/16 04:00 Room Air 12/08/16 03:50 36.7 97 18 171/82 (111) 97 Room Air 12/08/16 00:00 Room Air 12/07/16 23:13 37.1 105 16 150/81 (104) 96 Room Air 12/07/16 20:00 Room Air 12/07/16 19:43 37.0 12/07/16 19:33 119 24 158/63 (94) 95 Room Air 12/07/16 17:55 110 20 155/91 96 Room Air 12/07/16 17:50 110 17 169/91 95 Room Air 12/07/16 17:45 37.5 110 21 167/91 95 Room Air 12/07/16 17:35 111 22 150/96 98 Room Air 12/07/16 17:25 104 16 168/90 98 Room Air 12/07/16 17:15 108 21 148/101 98 Room Air 12/07/16 17:05 113 19 151/78 98 Room Air 12/07/16 16:55 114 19 136/81 98 Room Air 12/07/16 16:48 37.6 108 24 136/84 94 Room Air Physical Exam: General-aaox3, obese Eyes-no scleral icterus ENT-mmm Neck-supple Lungs-cta Heart-tachy Abdomen-bs+/soft/tender near incision-wrapped Extremities-+1 edema Neuro-nonfocal Current Inpatient Medications Medications (Trade) Dose Ordered Sig/Charito Route Start Time Stop Time Status Last Admin Dose Admin Labetalol HCl (Normodyne IV) 20 mg ONE PRN IV 12/06/16 10:15 01/05/17 10:14 Lactated Ringer's 1,000 ml @ 999 mls/hr Q1H1M PRN IV 12/06/16 10:17 01/05/17 10:16 9/21/17 05:51 999 MLS/HR Pantoprazole Sodium (Protonix Tab) 40 mg DAILY PO 12/07/16 08:00 01/06/17 07:59 12/06/16 15:42 40 MG Butorphanol Tartrate (Stadol Inj) 1 mg Q2HWA PRN IV 12/06/16 15:45 01/05/17 15:44 12/06/16 23:46 1 MG Promethazine HCl 25 mg/Sodium Chloride 51 ml @ 204 mls/hr Q6H PRN IV 12/06/16 23:00 01/05/17 22:59 12/06/16 23:30 204 MLS/HR Lactated Ringer's 500 ml @ 999 mls/hr Q31M PRN IV 12/06/16 23:11 01/05/17 23:10 Albuterol (Ventolin Hfa Inhaler) 2 puffs Q4 PRN INH 12/06/16 23:15 01/05/17 23:14 12/07/16 00:50 2 PUFFS Salmeterol Xinafoate/ Fluticasone (Advair Diskus 500/50 Inh) 1 puff BID INH 12/07/16 08:00 01/06/17 07:59 12/07/16 21:25 1 PUFF Levothyroxine Sodium (Synthroid Tab) 50 mcg DAILYBB PO 12/07/16 07:30 01/06/17 07:29 12/07/16 07:35 50 MCG Promethazine HCl 12.5 mg/Sodium Chloride 50.5 ml @ 204 mls/hr Q6H PRN IV 12/07/16 11:15 01/06/17 11:14 12/07/16 12:25 204 MLS/HR Lactated Ringer's 1,000 ml @ 1,000 mls/hr Q1H IV 12/07/16 13:58 01/06/17 13:57 Sodium Chloride 1,000 ml @ 125 mls/hr Q8H IV 12/07/16 15:30 01/06/17 15:29 12/08/16 01:30 125 MLS/HR Meperidine HCl (Demerol Inj) 50 mg Q4H PRN IV 12/08/16 10:16 12/22/16 10:15 12/07/16 21:23 50 MG Meperidine HCl (Demerol Inj) 75 mg Q4H PRN IV 12/08/16 10:16 12/22/16 10:15 Oxycodone/ Acetaminophen (Percocet 5-325mg Tab) 1 tab Q4H PRN PO 12/08/16 10:16 12/22/16 10:15 Oxycodone/ Acetaminophen (Percocet 5-325mg Tab) 2 tab Q4H PRN PO 12/08/16 10:16 12/22/16 10:15 Promethazine HCl 25 mg/Sodium Chloride 51 ml @ 204 mls/hr Q4H PRN IV 12/07/16 16:45 01/06/17 16:44 Ondansetron HCl (Zofran Inj) 4 mg Q4H PRN IV 12/08/16 10:16 01/07/17 10:15 Prenat Multivit/ Rn Corrections/Iron/Folic Ac ( Vitamin Tab) 1 tab DAILY PO 12/08/16 08:00 01/07/17 07:59 Bisacodyl (Dulcolax Tab) 5 mg HS ONCE PO 12/08/16 21:00 12/08/16 22:01 Bisacodyl (Dulcolax Supp) 10 mg PRN PRN LA 12/09/16 16:45 01/08/17 16:44 Docusate Sodium (coLACE CAP) 100 mg BID PO 12/07/16 20:00 01/06/17 19:59 12/07/16 21:24 100 MG Ferrous Sulfate (Feosol Tab) 325 mg DAILY PO 12/08/16 08:00 01/07/17 07:59 Cocaine HCl (Supercream 0.870% Cr) BID PRN EXT 12/07/16 16:45 12/21/16 16:44 Lanolin (Lanolin Oint) PRN PRN EXT 12/07/16 16:45 01/06/17 16:44 Hydrocortisone Acetate (Anusol Hc Supp) 25 mg BID PRN LA 12/07/16 16:45 01/06/17 16:44 Benzocaine (Dermoplast Aero Spr) 1 appln PRN PRN EXT 12/07/16 16:45 01/06/17 16:44 Simethicone (Mylicon Chew Tab) 80 mg QID PO 12/07/16 17:00 01/06/17 16:59 12/07/16 21:24 80 MG Diphenhydramine HCl (Benadryl Cap) 25 mg QID PRN PO 12/08/16 10:16 01/07/17 10:15 Diphenhydramine HCl (Benadryl Inj) 25 mg QID PRN IV 12/08/16 10:16 01/07/17 10:15 Senna (Senokot Tab) 17.2 mg HS PRN PO 12/07/16 16:45 01/06/17 16:44 Naloxone HCl (Narcan Inj) 0.1 mg UD PRN IV 12/07/16 17:00 12/08/16 10:15 Diphenhydramine HCl (Benadryl Inj) 25 mg Q6H PRN IV 12/07/16 17:00 12/08/16 10:15 Nalbuphine HCl (Nubain Inj) 5 mg Q10M PRN IV 12/07/16 17:00 12/08/16 10:15 Naloxone HCl 1 mg/ Sodium Chloride 1,002.5 ml @ 50 mls/hr Q20H3M PRN IV 12/07/16 16:56 12/08/16 10:15 Promethazine HCl 12.5 mg/Sodium Chloride 50.5 ml @ 200 mls/hr Q6H PRN IV 12/07/16 17:00 12/08/16 10:15 Miscellaneous Information (Dc Intraspinal Morphine) 1 ea TODAY@1015 N/A 12/08/16 10:15 12/08/16 10:16 Miscellaneous Information (No Narcotics Or Sedatives) 1 ea UD N/A 12/07/16 17:00 12/08/16 10:15 Naloxone HCl 0.08 mg/Syringe 2 ml @ 1 mls/min Q2M PRN IV 12/07/16 16:56 12/08/16 10:15 Morphine Sulfate (MoRPHine SULFATE INJ) 2 mg Q6H PRN IV 12/07/16 17:00 12/08/16 10:15 12/08/16 03:56 2 MG Lactated Ringer's 500 ml @ 999 mls/hr Q31M PRN IV 12/07/16 16:56 12/08/16 10:15 Ephedrine Sulfate (EpHEDrine SULFATE INJ) 10 mg Q5M PRN IV 12/07/16 17:00 12/08/16 10:15 Morphine Sulfate (Duramorph Pf Inj) 3 mg TODAY PRN EPI 12/07/16 17:00 12/08/16 10:15 Sodium Chloride 1,000 ml @ 15 mls/hr Q24H PRN IV 12/07/16 16:56 12/08/16 10:15 Oxytocin 20 units/ Sodium Chloride 1,002 ml @ 150 mls/hr Q6H41M IV 12/07/16 18:00 12/08/16 07:21 12/08/16 01:31 150 MLS/HR Last 24 Hours Test 12/07/16 06:12 12/07/16 08:55 12/07/16 11:01 12/07/16 14:07 Magnesium Level 7.3 mg/dl 8.2 mg/dl 8.3 mg/dl White Blood Count 19.50 K/uL Red Blood Count 4.41 M/uL Hemoglobin 10.3 g/dL Hematocrit 32.2 % Mean Corpuscular Volume 73.0 fL Mean Corpuscular Hemoglobin 23.4 pg Mean Corpuscular Hemoglobin Concent 32.0 g/dl Platelet Count 342 K/uL Mean Platelet Volume 10.7 fL Neutrophils (%) (Auto) 83.9 % Lymphocytes (%) (Auto) 9.4 % Monocytes (%) (Auto) 4.6 % Eosinophils (%) (Auto) 0.1 % Basophils (%) (Auto) 0.2 % Neutrophils # (Auto) 16.37 K/uL Lymphocytes # (Auto) 1.83 K/uL Monocytes # (Auto) 0.90 K/uL Eosinophils # (Auto) 0.02 K/uL Basophils # (Auto) 0.03 K/uL RDW Standard Deviation 46.4 fL RDW Coefficient of Variation 17.6 % Immature Granulocyte % (Auto) 1.8 % Immature Granulocyte # (Auto) 0.35 K/uL Prothrombin Time 9.4 SECONDS Prothromb Time International Ratio 0.9 Activated Partial Thromboplast Time 27.7 SECONDS Partial Thromboplastin Ratio 1.1 Sodium Level 130 mmol/L 130 mmol/L Potassium Level 4.4 mmol/L 4.5 mmol/L Chloride Level 99 mmol/L 97 mmol/L Carbon Dioxide Level 19 mmol/L 19 mmol/L Anion Gap 12.0 mmol/L 14.0 mmol/L Blood Urea Nitrogen 20 mg/dl 22 mg/dl Creatinine 1.40 mg/dl 1.80 mg/dl Est Creatinine Clear Calc Drug Dose 55.1 ml/min 42.8 ml/min Estimated GFR () 54.3 40.1 Estimated GFR (Non- 46.9 34.6 BUN/Creatinine Ratio 14.0 12.4 Random Glucose 93 mg/dl 87 mg/dl Calcium Level 8.7 mg/dl 9.0 mg/dl Total Bilirubin 0.3 mg/dl 0.4 mg/dl Aspartate Amino Transf (AST/SGOT) 22 U/L 21 U/L Alanine Aminotransferase (ALT/SGPT) 16 U/L 17 U/L Alkaline Phosphatase 181 U/L 198 U/L Lactate Dehydrogenase 191 U/L Total Protein 7.1 gm/dl 7.3 gm/dl Albumin 2.3 gm/dl 2.4 gm/dl Globulin 4.8 gm/dl 4.9 gm/dl Albumin/Globulin Ratio 0.5 0.5 Test 12/07/16 15:34 12/07/16 18:18 12/07/16 21:31 White Blood Count 25.79 K/uL Red Blood Count 4.01 M/uL Hemoglobin 9.4 g/dL Hematocrit 29.4 % Mean Corpuscular Volume 73.3 fL Mean Corpuscular Hemoglobin 23.4 pg Mean Corpuscular Hemoglobin Concent 32.0 g/dl RDW Standard Deviation 47.2 fL RDW Coefficient of Variation 17.8 % Platelet Count 359 K/uL Mean Platelet Volume 9.8 fL Nucleated RBC Absolute Count (auto) 0.06 K/uL Nucleated Red Blood Cells % 0.2 % Sodium Level 132 mmol/L 133 mmol/L Potassium Level 4.5 mmol/L 4.4 mmol/L Chloride Level 101 mmol/L 101 mmol/L Carbon Dioxide Level 18 mmol/L 20 mmol/L Anion Gap 13.0 mmol/L 12.0 mmol/L Blood Urea Nitrogen 22 mg/dl 22 mg/dl Creatinine 1.80 mg/dl 1.80 mg/dl Est Creatinine Clear Calc Drug Dose 42.8 ml/min 42.8 ml/min Estimated GFR () 40.1 40.1 Estimated GFR (Non- 34.6 34.6 BUN/Creatinine Ratio 12.3 12.3 Random Glucose 113 mg/dl 113 mg/dl Calcium Level 8.1 mg/dl 8.4 mg/dl Magnesium Level 6.7 mg/dl 5.8 mg/dl Total Bilirubin 0.3 mg/dl Aspartate Amino Transf (AST/SGOT) 19 U/L Alanine Aminotransferase (ALT/SGPT) 16 U/L Alkaline Phosphatase 169 U/L Total Protein 6.3 gm/dl Albumin 2.1 gm/dl Globulin 4.2 gm/dl Albumin/Globulin Ratio 0.5 Assessment & Plan KRISTINE-creatinine was trending up with proteinuria in the setting of with advanced maternal age. treatment is delivery of the baby and she underwent yesterday afternoon. pt urinating very well but urine still with signfiicant sediment. continue the aggressive fluids hoping the urine starts to become more clear. labs pending for this am. getting renal us this morning to be thorough. hypermag-pt with no EKG changes and no hypotension-mag has been trending down and should be much better this morning with the amount of urine in the lamar catheter. labs pending.
[2016-12-08] MEDS: LEVOTHYROXINE 25 MCG TAB PO SCH (06:20)
[2016-12-08 07:02] LABS: BASO ABS # 0.01 K/uL (0-0.2); COMPLETE YES; HEMATOCRIT 27.9 % (37-47); IG% 0.8 %; LYMPH % 6.3 %; MEAN CELL VOLUME 73.4 fL (80-100); MEAN CORPUSCULAR HEMOGLOBIN 24.2 pg (25-34); MONO % 3.9 %; PLATELET COUNT 327 K/uL (130-400); WHITE BLOOD COUNT 20.52 K/uL (4.8-10.8)
[2016-12-08 07:36] LABS: CREATININE 1.5 mg/dl (0.60-1.20)
[2016-12-08 07:37] LABS: BUN/CREATININE RATIO 14.3 (10-20); CALCIUM 8.1 mg/dl (8.5-10.1); MAGNESIUM THERAPEUTIC(L&DONLY) 4.1 mg/dl (1.8-2.4); POTASSIUM 4.4 mmol/L (3.5-5.1)
[2016-12-08 07:39] LABS: ALB/GLOB RATIO 0.5 (0.9-2)
[2016-12-08] MEDS: DOCUSATE SODIUM 100 MG CAP PO SCH ×2 (07:54→22:33)
[2016-12-08] MEDS: SIMETHICONE 80 MG CHEW PO SCH ×4 (07:54→22:33)
[2016-12-08] MEDS: FLUTICASONE/SALMETEROL (ADVAIR) 500/50 INH 14 PUFF INH SCH ×2 (07:55→22:32)
[2016-12-08] MEDS: PRENATAL VITAMIN TAB PO SCH (07:55)
[2016-12-08] MEDS: FERROUS SULFATE 325 MG TAB PO SCH (07:55)
[2016-12-08 08:03] VITALS: BP 138/78; PULSE 90; TEMP 37; O2SAT 95
[2016-12-08] MEDS ORDERED: OXYCODONE/ACETAMINOPHEN 5-325 TAB ONE (08:04)
[2016-12-08] MEDS: OXYCODONE/ACETAMINOPHEN 5-325 TAB PO PRN ×4 (08:07→22:31)
[2016-12-08 08:29] LABS: URINE APPEARANCE CLOUDY (CLEAR); URINE BILIRUBIN NEG (NEG); URINE COLOR ORANGE; URINE NITRITE NEG (NEG); URINE SPECIFIC GRAVITY 1.019 (1.000-1.030); UROBILINOGEN NEG (NEG); ZZURINE CULT IF INDIC CATH YES
[2016-12-08 08:30] LABS: MANUAL MICROSCOPIC REQUIRED? NO; REVIEW REQ? YES
--- NOTE | 2016-12-08 08:31 | Surgery Progress Note ---
Surgery Progress Note Date of Service Dec 08, 2016. Subjective Post OP Day: 1 + feeling well, + pain controlled Objective Vital Signs: Date Time Temp Pulse Resp B/P (MAP) Pulse Ox O2 Delivery O2 Flow Rate FiO2 12/08/16 08:03 37.0 90 20 138/78 (98) 95 Room Air 12/08/16 04:00 147/79 (101) 12/08/16 04:00 Room Air 12/08/16 03:50 36.7 97 18 171/82 (111) 97 Room Air 12/08/16 00:00 Room Air 12/07/16 23:13 37.1 105 16 150/81 (104) 96 Room Air 12/07/16 20:00 Room Air 12/07/16 19:43 37.0 12/07/16 19:33 119 24 158/63 (94) 95 Room Air 12/07/16 17:55 110 20 155/91 96 Room Air 12/07/16 17:50 110 17 169/91 95 Room Air 12/07/16 17:45 37.5 110 21 167/91 95 Room Air 12/07/16 17:35 111 22 150/96 98 Room Air 12/07/16 17:25 104 16 168/90 98 Room Air 12/07/16 17:15 108 21 148/101 98 Room Air 12/07/16 17:05 113 19 151/78 98 Room Air 12/07/16 16:55 114 19 136/81 98 Room Air 12/07/16 16:48 37.6 108 24 136/84 94 Room Air General Appearance: no apparent distress Respiratory/Chest: no respiratory distress Cardiovascular: regular rate, rhythm Abdomen: non tender Incision(s): clean, dry, intact Extremities: non-tender, normal inspection, + pedal edema Laboratory Results: Results Past 24 Hours Test 12/07/16 08:55 12/07/16 11:01 12/07/16 14:07 12/07/16 15:34 Range/Units White Blood Count 19.50 4.8-10.8 K/uL Red Blood Count 4.41 4.2-5.4 M/uL Hemoglobin 10.3 12.0-16.0 g/dL Hematocrit 32.2 37-47 % Mean Corpuscular Volume 73.0 80-100 fL Mean Corpuscular Hemoglobin 23.4 25-34 pg Mean Corpuscular Hemoglobin Concent 32.0 32-36 g/dl Platelet Count 342 130-400 K/uL Mean Platelet Volume 10.7 7.4-10.4 fL Neutrophils (%) (Auto) 83.9 % Lymphocytes (%) (Auto) 9.4 % Monocytes (%) (Auto) 4.6 % Eosinophils (%) (Auto) 0.1 % Basophils (%) (Auto) 0.2 % Neutrophils # (Auto) 16.37 1.4-6.5 K/uL Lymphocytes # (Auto) 1.83 1.2-3.4 K/uL Monocytes # (Auto) 0.90 0.11-0.59 K/uL Eosinophils # (Auto) 0.02 0-0.5 K/uL Basophils # (Auto) 0.03 0-0.2 K/uL RDW Standard Deviation 46.4 36.4-46.3 fL RDW Coefficient of Variation 17.6 11.5-14.5 % Immature Granulocyte % (Auto) 1.8 % Immature Granulocyte # (Auto) 0.35 0.00-0.02 K/uL Prothrombin Time 9.4 9.0-12.0 SECONDS Prothromb Time International Ratio 0.9 0.9-1.1 Activated Partial Thromboplast Time 27.7 21.0-31.0 SECONDS Partial Thromboplastin Ratio 1.1 Sodium Level 130 130 136-145 mmol/L Potassium Level 4.4 4.5 3.5-5.1 mmol/L Chloride Level 99 97 98-107 mmol/L Carbon Dioxide Level 19 19 21-32 mmol/L Anion Gap 12.0 14.0 3-11 mmol/L Blood Urea Nitrogen 20 22 7-18 mg/dl Creatinine 1.40 1.80 0.60-1.20 mg/dl Est Creatinine Clear Calc Drug Dose 55.1 42.8 ml/min Estimated GFR () 54.3 40.1 Estimated GFR (Non- 46.9 34.6 BUN/Creatinine Ratio 14.0 12.4 10-20 Random Glucose 93 87 70-99 mg/dl Calcium Level 8.7 9.0 8.5-10.1 mg/dl Total Bilirubin 0.3 0.4 0.2-1 mg/dl Aspartate Amino Transf (AST/SGOT) 22 21 15-37 U/L Alanine Aminotransferase (ALT/SGPT) 16 17 12-78 U/L Alkaline Phosphatase 181 198 45-117 U/L Lactate Dehydrogenase 191 84-246 U/L Total Protein 7.1 7.3 6.4-8.2 gm/dl Albumin 2.3 2.4 3.4-5.0 gm/dl Globulin 4.8 4.9 2.5-4.0 gm/dl Albumin/Globulin Ratio 0.5 0.5 0.9-2 Magnesium Level 8.2 8.3 1.8-2.4 mg/dl Test 12/07/16 18:18 12/07/16 21:31 12/08/16 06:14 12/08/16 08:11 Range/Units White Blood Count 25.79 20.52 4.8-10.8 K/uL Red Blood Count 4.01 3.80 4.2-5.4 M/uL Hemoglobin 9.4 9.2 12.0-16.0 g/dL Hematocrit 29.4 27.9 37-47 % Mean Corpuscular Volume 73.3 73.4 80-100 fL Mean Corpuscular Hemoglobin 23.4 24.2 25-34 pg Mean Corpuscular Hemoglobin Concent 32.0 33.0 32-36 g/dl RDW Standard Deviation 47.2 47.9 36.4-46.3 fL RDW Coefficient of Variation 17.8 17.9 11.5-14.5 % Platelet Count 359 327 130-400 K/uL Mean Platelet Volume 9.8 10.0 7.4-10.4 fL Nucleated RBC Absolute Count (auto) 0.06 0-0 K/uL Nucleated Red Blood Cells % 0.2 % Sodium Level 132 133 136 136-145 mmol/L Potassium Level 4.5 4.4 4.4 3.5-5.1 mmol/L Chloride Level 101 101 106 98-107 mmol/L Carbon Dioxide Level 18 20 22 21-32 mmol/L Anion Gap 13.0 12.0 8.0 3-11 mmol/L Blood Urea Nitrogen 22 22 21 7-18 mg/dl Creatinine 1.80 1.80 1.50 0.60-1.20 mg/dl Est Creatinine Clear Calc Drug Dose 42.8 42.8 51.4 ml/min Estimated GFR () 40.1 40.1 50.0 Estimated GFR (Non- 34.6 34.6 43.1 BUN/Creatinine Ratio 12.3 12.3 14.3 10-20 Random Glucose 113 113 78 70-99 mg/dl Calcium Level 8.1 8.4 8.1 8.5-10.1 mg/dl Magnesium Level 6.7 5.8 4.1 1.8-2.4 mg/dl Total Bilirubin 0.3 0.3 0.2-1 mg/dl Aspartate Amino Transf (AST/SGOT) 19 22 15-37 U/L Alanine Aminotransferase (ALT/SGPT) 16 13 12-78 U/L Alkaline Phosphatase 169 146 45-117 U/L Total Protein 6.3 6.0 6.4-8.2 gm/dl Albumin 2.1 1.9 3.4-5.0 gm/dl Globulin 4.2 4.1 2.5-4.0 gm/dl Albumin/Globulin Ratio 0.5 0.5 0.9-2 Neutrophils (%) (Auto) 89.0 % Lymphocytes (%) (Auto) 6.3 % Monocytes (%) (Auto) 3.9 % Eosinophils (%) (Auto) 0.0 % Basophils (%) (Auto) 0.0 % Neutrophils # (Auto) 18.23 1.4-6.5 K/uL Lymphocytes # (Auto) 1.30 1.2-3.4 K/uL Monocytes # (Auto) 0.81 0.11-0.59 K/uL Eosinophils # (Auto) 0.00 0-0.5 K/uL Basophils # (Auto) 0.01 0-0.2 K/uL Immature Granulocyte % (Auto) 0.8 % Immature Granulocyte # (Auto) 0.17 0.00-0.02 K/uL Assessment & Plan regular diet POD #1 urine output improved renal ultrasound pending may be stable to be transfected to post later
--- NOTE | 2016-12-08 08:50 | DIAGNOSTIC IMAGING REPORT ---
EXAMINATION: RENAL ULTRASOUND CLINICAL HISTORY: Acute renal insufficiency COMPARISON STUDY: CT scan dated 11/14/2009 FINDINGS: The right kidney measures 11.2 cm. The left kidney measures 10.6 cm. There is no evidence of hydronephrosis. There are no renal masses. The bladder was not imaged. The patient has a Bragg catheter and has undergone a recent . IMPRESSION : 1. No renal abnormalities identified. Electronically signed by: Dayday Pineda M.D. 12/08/2016 8:49 AM Dictated Date/Time: 12/08/2016 8:48 AM
[2016-12-08 08:51] LABS: URINE MUCUS PRESENT (NONE PRSENT)
[2016-12-08 08:52] LABS: URINE EPITHELIAL CELL AUTO 0-5 /lpf (0-5)
[2016-12-08] MEDS: PANTOprazole SOD 40 MG TAB PO SCH (09:00)
[2016-12-08] MEDS ORDERED: DC INTRASPINAL MORPHINE SCH (10:15)
[2016-12-08] MEDS ORDERED: NURSING VERBAL MED ORDER ONE (10:15)
[2016-12-08] MEDS ORDERED: DiphenhydrAMINE HCL 50 MG/ML VIAL IV PRN (10:16)
[2016-12-08] MEDS ORDERED: MEPERIDINE HCL 50 MG/ML CARP IV PRN (10:16)
[2016-12-08] MEDS ORDERED: ONDANSETRON INJ 2 MG/ML 2 ML VIAL IV PRN (10:16)
[2016-12-08 11:28] VITALS: BP 136/74; PULSE 91; TEMP 37; O2SAT 96
[2016-12-08] MEDS: MEPERIDINE HCL 50 MG/ML CARP IV PRN ×2 (15:09→20:15)
[2016-12-08 16:37] VITALS: BP 152/76; PULSE 89; TEMP 36.6; O2SAT 98
[2016-12-08] MEDS: DEXLANSOPRAZOLE 60 MG CAPDR PO SCH (17:00)
[2016-12-08] MEDS ORDERED: BISACODYL 5 MG TABEC PO ONE (21:00)
[2016-12-08 21:26] VITALS: BP 153/72; PULSE 102; TEMP 36.6; O2SAT 95
[2016-12-08 23:03] LABS: URINE PROTIEN/CREAT RATIO 0.5 (0-0.2); URINE TOTAL PROTEIN 19.5 mg/dl (0-11.9)
[2016-12-09 00:05] VITALS: BP 146/71; PULSE 86; TEMP 36.8; O2SAT 97
[2016-12-09] MEDS: SODIUM CHLORIDE 0.9% 1000ML 1,000 ML IV SCH (00:29)
[2016-12-09] MEDS: MEPERIDINE HCL 50 MG/ML CARP IV PRN (02:24)
[2016-12-09] MEDS: SIMETHICONE 80 MG CHEW PO SCH ×4 (02:27→20:02)
[2016-12-09] MEDS: OXYCODONE/ACETAMINOPHEN 5-325 TAB PO PRN ×2 (04:21→21:25)
[2016-12-09] MEDS: LEVOTHYROXINE 25 MCG TAB PO SCH (05:34)
[2016-12-09 07:16] LABS: HEMATOCRIT 25.1 % (37-47)
[2016-12-09] MEDS: FLUTICASONE/SALMETEROL (ADVAIR) 500/50 INH 14 PUFF INH SCH ×2 (07:40→20:02)
[2016-12-09] MEDS: DOCUSATE SODIUM 100 MG CAP PO SCH ×2 (07:40→20:02)
[2016-12-09] MEDS: DEXLANSOPRAZOLE 60 MG CAPDR PO SCH (07:41)
[2016-12-09] MEDS: FERROUS SULFATE 325 MG TAB PO SCH (07:41)
[2016-12-09] MEDS: PRENATAL VITAMIN TAB PO SCH (07:42)
[2016-12-09 07:51] LABS: BUN/CREATININE RATIO 18.8 (10-20); CALCIUM 8.4 mg/dl (8.5-10.1); CREATININE 0.98 mg/dl (0.60-1.20); MAGNESIUM 2.6 mg/dl (1.8-2.4); POTASSIUM 3.7 mmol/L (3.5-5.1)
--- NOTE | 2016-12-09 09:04 | OB/GYN Progress Note ---
[employer] Progress Note Date of Service Dec 09, 2016. Subjective conversation w/ patient, physical exam Ambulation: ambulating normally Voiding: lamar catheter in place Passing Gas: No Diet Tolerance: NPO Lochia: Moderate Pain: 8/10 Notes: This morning she is having increased abdominal distension and pain. Was made NPO overnight. No flatus or BM. Is ambulating in halls. Incision dressing removed this AM and incision is clean/dry/intact. Bleeding is moderate, no clots. Objective Vital Signs Date Time Temp Pulse Resp B/P (MAP) Pulse Ox O2 Delivery O2 Flow Rate FiO2 12/09/16 04:00 Room Air 12/09/16 00:05 36.8 86 18 146/71 (96) 97 Room Air 12/09/16 00:00 Room Air 12/08/16 21:26 36.6 102 24 153/72 (99) 95 Room Air 12/08/16 20:30 Room Air 12/08/16 16:37 36.6 89 22 152/76 (101) 98 Room Air 12/08/16 16:00 Room Air 12/08/16 12:00 Room Air 12/08/16 11:28 37.0 91 16 136/74 (94) 96 Room Air Physical Exam General Appearance: in pain, moderate distress Respiratory/Chest: chest non-tender, lungs clear Cardiovascular: regular rate, rhythm Abdomen: normal bowel sounds, + distended, + tenderness Fundus: Tender Incision Description: Clean, Dry & Intact Extremities: normal range of motion, non-tender, + pedal edema, + swelling Laboratory Results Last 24 Hours Test 12/08/16 14:32 12/09/16 06:16 Magnesium Level 3.6 mg/dl 2.6 mg/dl Hemoglobin 8.2 g/dL Hematocrit 25.1 % Sodium Level 135 mmol/L Potassium Level 3.7 mmol/L Chloride Level 106 mmol/L Carbon Dioxide Level 20 mmol/L Anion Gap 9.0 mmol/L Blood Urea Nitrogen 18 mg/dl Creatinine 0.98 mg/dl Est Creatinine Clear Calc Drug Dose 78.7 ml/min Estimated GFR () 83.6 Estimated GFR (Non- 72.2 BUN/Creatinine Ratio 18.8 Random Glucose 77 mg/dl Calcium Level 8.4 mg/dl Assessment and Plan Post-Op Day Number: 2 Continue Routine Care: 41 yo female s/p Csection for arrest of descent, preeclampsia with severe features, worsening renal fx, s/p magnesium seizure prophylaxis, pod # 2 -Increased abdominal distension and pain- Abdominal x-ray ordered, will consider NG tube, continue NPO -Cr improved to 0.98 this AM, magnesium level continues to decrease, now at 2.6 -Hgb 8.2 this morning, will repeat at noon today. -D/C lamar if nephrology ok with it -Consider moving her to 4th floor women's children if nephro is ok with it
--- NOTE | 2016-12-09 09:40 | DIAGNOSTIC IMAGING REPORT ---
CHEST AND ABDOMEN 2 VIEWS HISTORY: s/p section, abdominal pain and distension COMPARISON: Chest 05/17/2015. FINDINGS: The lungs are clear. Multiple mildly distended gas-filled loops of large small bowel seen throughout the abdomen. There is moderate stool within the colon. No pneumoperitoneum. No pneumatosis. IMPRESSION: Multiple gas-filled mildly distended loops of large or small bowel. These findings favor an ileus. No acute cardiopulmonary process. Electronically signed by: Yovanny Randall M.D. 12/09/2016 9:39 AM Dictated Date/Time: 12/09/2016 9:38 AM
[2016-12-09 12:10] VITALS: BP 180/84; PULSE 103; TEMP 36.8; O2SAT 99
[2016-12-09] MEDS ORDERED: NURSING VERBAL MED ORDER ONE ×3 (13:00→20:45)
[2016-12-09 13:09] LABS: HEMATOCRIT 30.2 % (37-47)
[2016-12-09 14:15] VITALS: BP 180/84; PULSE 103; TEMP 36.8; O2SAT 99
[2016-12-09] MEDS ORDERED: LACTATED RINGER'S 1000ML 1,000 ML IV SCH (14:15)
[2016-12-09 14:40] VITALS: BP 139/79; TEMP 37.4; O2SAT 98
[2016-12-09] MEDS ORDERED: KETOROLAC TROMETHAMINE 30 MG/ML VIAL IV PRN (15:15)
[2016-12-09] MEDS ORDERED: BISACODYL 10 MG SUPP PR PRN (16:45)
[2016-12-09 20:00] VITALS: BP 125/76; PULSE 111; TEMP 37
[2016-12-09 23:25] VITALS: BP 121/76; PULSE 92; TEMP 36.7
[2016-12-10 04:00] VITALS: BP 148/75; PULSE 99; TEMP 37.1
[2016-12-10] MEDS: OXYCODONE/ACETAMINOPHEN 5-325 TAB PO PRN ×4 (04:54→19:56)
[2016-12-10 07:20] VITALS: BP 146/78; PULSE 92; TEMP 37.1; O2SAT 98
[2016-12-10] MEDS: LEVOTHYROXINE 25 MCG TAB PO SCH (07:32)
[2016-12-10 08:05] LABS: HEMATOCRIT 25.7 % (37-47); MEAN CELL VOLUME 73.9 fL (80-100); MEAN CORPUSCULAR HEMOGLOBIN 23.9 pg (25-34); MEAN PLATELET VOLUME 9.3 fL (7.4-10.4); PLATELET COUNT 366 K/uL (130-400); RED BLOOD COUNT 3.48 M/uL (4.2-5.4); WHITE BLOOD COUNT 18.28 K/uL (4.8-10.8)
[2016-12-10 08:13] LABS: MEAN CORPUSCULAR HGB CONC 32.3 g/dl (32-36)
[2016-12-10 08:24] LABS: BUN/CREATININE RATIO 20.5 (10-20); CALCIUM 8.3 mg/dl (8.5-10.1); CREATININE 0.97 mg/dl (0.60-1.20); POTASSIUM 4.1 mmol/L (3.5-5.1)
[2016-12-10] MEDS: FLUTICASONE/SALMETEROL (ADVAIR) 500/50 INH 14 PUFF INH SCH ×2 (08:38→19:52)
[2016-12-10] MEDS: FERROUS SULFATE 325 MG TAB PO SCH (08:38)
[2016-12-10] MEDS: PRENATAL VITAMIN TAB PO SCH (08:38)
[2016-12-10] MEDS: SIMETHICONE 80 MG CHEW PO SCH ×4 (08:38→19:52)
[2016-12-10] MEDS: DOCUSATE SODIUM 100 MG CAP PO SCH ×2 (08:38→19:52)
[2016-12-10] MEDS: DEXLANSOPRAZOLE 60 MG CAPDR PO SCH (08:38)
--- NOTE | 2016-12-10 09:10 | OB/GYN Progress Note ---
LEGAL COUNSEL Progress Note Date of Service: Dec 10, 2016. Patient is seen and examined. She feels better Pain is under control with oral meds. Ambulating without dizziness Voiding without difficulty Tolerating clear diet with out N&V since last night Flatus + many times BM very small Bleeding is minimal No fever/ chills/ CP/ SOB/ N&V/ Leg pain Breast feeding without problems Date Time Temp Pulse Resp B/P (MAP) Pulse Ox O2 Delivery O2 Flow Rate FiO2 12/10/16 04:00 37.1 99 20 148/75 (99) Room Air 12/09/16 23:25 36.7 92 18 121/76 (91) Room Air 12/09/16 23:25 Room Air 12/09/16 20:00 37.0 111 20 125/76 (92) Room Air 12/09/16 14:40 37.4 20 139/79 (99) 98 Room Air 12/09/16 14:40 Room Air 12/09/16 14:15 36.8 103 22 99 12/09/16 12:10 36.8 103 22 180/84 (116) 99 Room Air 12/09/16 12:00 Room Air Test 12/06/16 10:14 12/07/16 08:55 12/07/16 14:07 12/07/16 18:18 Immature Granulocyte % (Auto) 0.9 1.8 White Blood Count 15.18 H 19.50 H 25.79 H Red Blood Count 4.46 4.41 4.01 L Hemoglobin 10.6 L 10.3 L Hematocrit 32.6 L 32.2 L Mean Corpuscular Volume 73.1 L 73.0 L 73.3 L Mean Corpuscular Hemoglobin 23.8 L 23.4 L 23.4 L Mean Corpuscular Hemoglobin Concent 32.5 32.0 32.0 Platelet Count 332 342 359 Mean Platelet Volume 10.3 10.7 H 9.8 Neutrophils (%) (Auto) 82.4 83.9 Lymphocytes (%) (Auto) 12.4 9.4 Monocytes (%) (Auto) 3.7 4.6 Eosinophils (%) (Auto) 0.5 0.1 Basophils (%) (Auto) 0.1 0.2 Neutrophils # (Auto) 12.50 H 16.37 H Lymphocytes # (Auto) 1.88 1.83 Monocytes # (Auto) 0.56 0.90 H Eosinophils # (Auto) 0.08 0.02 Basophils # (Auto) 0.02 0.03 Immature Granulocyte # (Auto) 0.14 H 0.35 H Nucleated RBC Absolute Count (auto) 0.02 H 0.06 H Nucleated Red Blood Cells % 0.1 0.2 Prothrombin Time 9.8 9.4 Prothrombin Time INR 0.9 0.9 PTT 28.5 27.7 Partial Thromboplastin Ratio 1.1 1.1 Uric Acid 7.3 H Lactate Dehydrogenase 177 191 Total Bilirubin 0.4 0.3 Aspartate Amino Transferase (AST) 21 19 Alanine Aminotransferase (ALT) 17 16 Alkaline Phosphatase 198 H 169 H Total Protein 7.3 6.3 L Albumin 2.4 L 2.1 L Globulin 4.9 H 4.2 H Albumin/Globulin Ratio 0.5 L 0.5 L RDW Standard Deviation 47.2 H RDW Coefficient of Variation 17.8 H Test 12/07/16 22:30 12/08/16 06:14 12/08/16 08:11 12/08/16 14:32 Urine Random Creatinine 36.0 Urine Random Total Protein 19.5 H Urine Protein/Creatinine Ratio 0.5 H White Blood Count 20.52 H Red Blood Count 3.80 L Hemoglobin 9.2 L Hematocrit 27.9 L Mean Corpuscular Volume 73.4 L Mean Corpuscular Hemoglobin 24.2 L Mean Corpuscular Hemoglobin Concent 33.0 Platelet Count 327 Mean Platelet Volume 10.0 Neutrophils (%) (Auto) 89.0 Lymphocytes (%) (Auto) 6.3 Monocytes (%) (Auto) 3.9 Eosinophils (%) (Auto) 0.0 Basophils (%) (Auto) 0.0 Neutrophils # (Auto) 18.23 H Lymphocytes # (Auto) 1.30 Monocytes # (Auto) 0.81 H Eosinophils # (Auto) 0.00 Basophils # (Auto) 0.01 RDW Standard Deviation 47.9 H RDW Coefficient of Variation 17.9 H Immature Granulocyte % (Auto) 0.8 Immature Granulocyte # (Auto) 0.17 H Sodium Level 136 Potassium Level 4.4 Chloride Level 106 Carbon Dioxide Level 22 Anion Gap 8.0 Blood Urea Nitrogen 21 H Creatinine 1.50 #H Est Creatinine Clear Calc Drug Dose 51.4 Estimated GFR () 50.0 Estimated GFR (Non- 43.1 BUN/Creatinine Ratio 14.3 Random Glucose 78 Calcium Level 8.1 L Magnesium Level 4.1 H 3.6 H Total Bilirubin 0.3 Aspartate Amino Transferase (AST) 22 Alanine Aminotransferase (ALT) 13 Alkaline Phosphatase 146 H Total Protein 6.0 L Albumin 1.9 L Globulin 4.1 H Albumin/Globulin Ratio 0.5 L Urine Color ORANGE Urine Appearance CLOUDY Urine pH 5.0 Urine Specific [place] 1.019 Urine Protein 1+ Urine Glucose (UA) NEG Urine Ketones NEG Urine Occult Blood 3+ H Urine Nitrite NEG Urine Bilirubin NEG Urine Urobilinogen NEG Urine Leukocyte Esterase LARGE H Urine WBC (Auto) >30 H Urine RBC (Auto) >30 H Urine Hyaline Casts (Auto) 1-5 Urine Epithelial Cells (Auto) 0-5 Urine Bacteria (Auto) NEG Urine Crystals AMORPHOUS SEDIMENT H Urine Pathogenic Casts Urine Mucus PRESENT H Urine Yeast (Auto) Test 12/09/16 06:16 12/09/16 12:42 12/10/16 07:41 Hemoglobin 8.2 L 9.3 L 8.3 L Hematocrit 25.1 L 30.2 L 25.7 L Sodium Level 135 L 138 Potassium Level 3.7 # 4.1 Chloride Level 106 106 Carbon Dioxide Level 20 L 19 L Anion Gap 9.0 13.0 H Blood Urea Nitrogen 18 20 H Creatinine 0.98 # 0.97 Est Creatinine Clear Calc Drug Dose 78.7 79.5 Estimated GFR () 83.6 84.7 Estimated GFR (Non- 72.2 73.1 BUN/Creatinine Ratio 18.8 20.5 H Random Glucose 77 68 L Calcium Level 8.4 L 8.3 L Magnesium Level 2.6 H White Blood Count 18.28 H Red Blood Count 3.48 L Mean Corpuscular Volume 73.9 L Mean Corpuscular Hemoglobin 23.9 L Mean Corpuscular Hemoglobin Concent 32.3 RDW Standard Deviation 48.6 H RDW Coefficient of Variation 18.3 H Platelet Count 366 Mean Platelet Volume 9.3 PE: General: Alert, orientedx3, NAD CVS: S1S2 RRR Lungs; CTAB Abd: soft, NT, fundus firm, below Umbilicus, distended, BS+ active in 4 quadrants Incision: Clean, dry, intact Perineum intact, Lochia rubra minimal Ext; NT, 2+/2+ pretibial and ankle edema, no erthema or cord AP: 41 yo s/p Primary C Section, for arrest of descent, preeclampsia with severe features, worsening renal fx, s/p magnesium seizure prophylaxis, pod # 3 VSS Afebrile doing well -Increased abdominal distension and pain- Abdominal x-ray with ileus yesterday, s/p NGT, could not tolerate well Now flatus+, tolerating clears, will advance as tolerated today -Creatinine improved to 0.97 this AM, magnesium level continued to decrease -Hgb 8, stable, asymptomatic: on iron Continue to monitor/ postop care Encourage ambulation All questions were answered D/C home tomorrow
[2016-12-10] MEDS: IBUPROFEN 600 MG TAB PO PRN ×2 (10:55→19:53)
[2016-12-10 12:30] VITALS: BP 152/82; PULSE 94
[2016-12-10 15:50] VITALS: BP 144/80; PULSE 97; TEMP 36.7; O2SAT 98
[2016-12-10 20:00] VITALS: BP 126/73; PULSE 101; TEMP 37
[2016-12-10 23:30] VITALS: BP 142/74; PULSE 106; TEMP 36.9
[2016-12-11] VITALS (7 sets, daily range): BP systolic 113–162; BP diastolic 74–91; PULSE 93–114; TEMP 36.7–37.5; O2SAT 94–98
[2016-12-11 06:52] LABS: BASO % 0.1 %; BASO ABS # 0.01 K/uL (0-0.2); EOS % 0.7 %; HEMATOCRIT 26.7 % (37-47); IG% 0.7 %; LYMPH % 7.9 %; LYMPH ABS # 1.28 K/uL (1.2-3.4); MEAN CORPUSCULAR HGB CONC 31.1 g/dl (32-36); MEAN PLATELET VOLUME 8.6 fL (7.4-10.4); MONO % 4.3 %; NEUT % 86.3 %; PLATELET COUNT 397 K/uL (130-400); RED BLOOD COUNT 3.61 M/uL (4.2-5.4); WHITE BLOOD COUNT 16.14 K/uL (4.8-10.8)
[2016-12-11 07:19] LABS: BUN/CREATININE RATIO 16.1 (10-20); CALCIUM 8.7 mg/dl (8.5-10.1); CREATININE 0.87 mg/dl (0.60-1.20)
[2016-12-11 07:21] LABS: ANISOCYTOSIS PRESENT; COMPLETE YES; HYPOCHROMIA PRESENT; MICROCYTOSIS PRESENT
[2016-12-11 07:22] LABS: ALB/GLOB RATIO 0.4 (0.9-2)
[2016-12-11] MEDS: LEVOTHYROXINE 25 MCG TAB PO SCH (08:00)
[2016-12-11] MEDS: OXYCODONE/ACETAMINOPHEN 5-325 TAB PO PRN ×4 (08:01→20:16)
[2016-12-11] MEDS: IBUPROFEN 600 MG TAB PO PRN ×2 (08:01→15:52)
[2016-12-11] MEDS: DEXLANSOPRAZOLE 60 MG CAPDR PO SCH (09:23)
[2016-12-11] MEDS: FERROUS SULFATE 325 MG TAB PO SCH (09:23)
[2016-12-11] MEDS: DOCUSATE SODIUM 100 MG CAP PO SCH ×2 (09:23→20:18)
[2016-12-11] MEDS: PRENATAL VITAMIN TAB PO SCH (09:23)
[2016-12-11] MEDS: SIMETHICONE 80 MG CHEW PO SCH ×4 (09:23→20:17)
[2016-12-11] MEDS: FLUTICASONE/SALMETEROL (ADVAIR) 500/50 INH 14 PUFF INH SCH ×2 (09:24→20:17)
[2016-12-11] MEDS ORDERED: OXYC-57 PO (11:15)
[2016-12-11] MEDS ORDERED: MTR600X PO (11:15)
--- NOTE | 2016-12-11 11:19 | Surgery Progress Note ---
Surgery Progress Note Date of Service Dec 11, 2016. Subjective Post OP Day: 4 + feeling well, + ambulating, + flatus, + pain controlled Objective Vital Signs: Date Time Temp Pulse Resp B/P (MAP) Pulse Ox O2 Delivery O2 Flow Rate FiO2 12/11/16 09:30 Room Air 12/11/16 08:32 143/83 (103) 12/11/16 07:55 37.5 106 22 162/91 (114) 94 Room Air 12/11/16 05:30 36.7 93 20 139/84 (102) Room Air 12/10/16 23:30 36.9 106 20 142/74 (96) Room Air 12/10/16 23:30 Room Air 12/10/16 20:00 37.0 101 20 126/73 (90) Room Air 12/10/16 15:50 98 Room Air 12/10/16 15:50 36.7 97 20 144/80 (101) 98 Room Air 12/10/16 12:30 94 20 152/82 (105) Room Air General Appearance: no apparent distress Abdomen: non tender, non distended, soft Incision(s): clean, dry, intact Extremities: non-tender, normal inspection, no pedal edema Laboratory Results: Results Past 24 Hours Test 12/11/16 06:39 Range/Units White Blood Count 16.14 4.8-10.8 K/uL Red Blood Count 3.61 4.2-5.4 M/uL Hemoglobin 8.3 12.0-16.0 g/dL Hematocrit 26.7 37-47 % Mean Corpuscular Volume 74.0 80-100 fL Mean Corpuscular Hemoglobin 23.0 25-34 pg Mean Corpuscular Hemoglobin Concent 31.1 32-36 g/dl Platelet Count 397 130-400 K/uL Mean Platelet Volume 8.6 7.4-10.4 fL Neutrophils (%) (Auto) 86.3 % Lymphocytes (%) (Auto) 7.9 % Monocytes (%) (Auto) 4.3 % Eosinophils (%) (Auto) 0.7 % Basophils (%) (Auto) 0.1 % Neutrophils # (Auto) 13.92 1.4-6.5 K/uL Lymphocytes # (Auto) 1.28 1.2-3.4 K/uL Monocytes # (Auto) 0.70 0.11-0.59 K/uL Eosinophils # (Auto) 0.11 0-0.5 K/uL Basophils # (Auto) 0.01 0-0.2 K/uL RDW Standard Deviation 48.8 36.4-46.3 fL RDW Coefficient of Variation 18.3 11.5-14.5 % Immature Granulocyte % (Auto) 0.7 % Immature Granulocyte # (Auto) 0.12 0.00-0.02 K/uL Hypochromasia PRESENT Anisocytosis PRESENT Microcytosis PRESENT Sodium Level 139 136-145 mmol/L Potassium Level 4.0 3.5-5.1 mmol/L Chloride Level 107 98-107 mmol/L Carbon Dioxide Level 24 21-32 mmol/L Anion Gap 8.0 3-11 mmol/L Blood Urea Nitrogen 14 7-18 mg/dl Creatinine 0.87 0.60-1.20 mg/dl Est Creatinine Clear Calc Drug Dose 88.6 ml/min Estimated GFR () 96.6 Estimated GFR (Non- 83.3 BUN/Creatinine Ratio 16.1 10-20 Random Glucose 91 70-99 mg/dl Calcium Level 8.7 8.5-10.1 mg/dl Total Bilirubin 0.2 0.2-1 mg/dl Aspartate Amino Transf (AST/SGOT) 25 15-37 U/L Alanine Aminotransferase (ALT/SGPT) 23 12-78 U/L Alkaline Phosphatase 158 45-117 U/L Total Protein 6.5 6.4-8.2 gm/dl Albumin 1.9 3.4-5.0 gm/dl Globulin 4.6 2.5-4.0 gm/dl Albumin/Globulin Ratio 0.4 0.9-2 Assessment & Plan POD #4 discharged home f/u this Sunday POD #1 urine output improved renal ultrasound pending may be stable to be transfected to post later
--- NOTE | 2016-12-17 13:14 | DISCHARGE SUMMARY ---
DETAILS OF ADMISSION: The patient is a 41-year-old G3, P 0-0-2-0 at 39 weeks and 3 days of gestation who was sent from office on 12/06/2016 for elevated blood pressures and 4+ proteinuria. She presented to labor and delivery and her blood pressures were 160's /100's and in the severe range. Her urine dip was with 3+ protein. She was admitted for induction of labor for preeclampsia with severe features at term. She received Cervidil and then Pitocin augmentation. She was started on magnesium seizure prophylaxis as well. On hospital day #2, December 07, she progressed to full dilatation, but for the presenting part head was ballottable. She was given more Pitocin with regular contractions. heart rate had been category 1 and then careful artificial rupture of membranes was done due to high presentation and baby came to the pelvis presenting to -3. Then she was given more Pitocin with regular contractions with the heart rate category 1. She had no progress in descend of head. Her blood work including platelets and liver enzymes were normal, but her creatinine started to increase; her baseline from early was 0.6, on admission it was 0.9 and then it came up to 1.5. I have called nephrology and anesthesiologist for further recommendation and we proceeded with primary due to arrest of descent, preeclampsia with severe features and worsening renal function. See dictated OP note for details. The patient delivered a viable male , Apgars were 8/9 on 12/07/2016 and no complications happened. In postop period, the patient was doing well. Vital signs were stable. She was taken to telemetry to monitor her heart rate recommended by nephrology. She was feeling much better. No chest pain or shortness of breath. Vital signs were stable. Her blood pressures were slightly elevated. She was given labetalol as needed. Her pulse was slightly tachycardic. She was given IV fluid replacement for fluid deficit and her urine output improved. On postop day #1, the patient was doing well. Vital signs were stable. Tachycardia was resolved. Urine output was good. Her H&H was stable; Hct was 27.9. Her creatinine came down to 1.5 from 1.8 from last night and she was monitored closely in the telemetry unit. On postoperative #2, the patient was doing well. She was brought up to the fourth floor to the unit. She started to have nausea and was having abdominal distention. She was made n.p.o. and placed NG tube. She could not tolerate the NG tube and she wanted to take it out; it was taken out and she was kept n.p.o. She started to pass gas later and her distention improved. On December 10, postop day #3, the patient was feeling better. She was passing gas and moving her bowels. She was tolerating clears. Her hemoglobin was stable at around 8. Her creatinine improved to 0.9. She was ambulated. She was kept on clear diet. She had no complaints of nausea or vomiting. On postop day #4, the patient was doing well. Her vital signs stable, afebrile. She was passing gas. She moved her bowels. She was discharged home on postop #[address] Bettencourt. Her creatinine came down to 0.8. Discharge instructions were given, prescriptions were written and all questions were answered. She is to be followed by a home nurse and as well as in the office next week. VASHTI
== END 2016-12-11 21:45 | disposition home or self-care (01) | DRG 765 ==
LOC: C.OPB 09:40 → C.LD 09:40 → C.OPB 10:08 → C.LD 10:08 → C.2E 12-07 18:28 → EDSTATUS 12-08 10:02 → ENRESERV 12-09 12:42 → C.OBG 12-09 14:12
PROVIDERS: ADMIT Obstetrics & Gynecology; ATTEND Obstetrics & Gynecology
PROC: 10D00Z1 Extraction of Products of Conception, Low, Open Approach (ICD-10-PCS; principal; 2016-12-07 15:12)
PROC: 3E0P7GC Introduction of Other Therapeutic Substance into Female Reproductive, Via Natural or Artificial Opening (ICD-10-PCS; principal; 2016-12-07 15:12)
DX: O14.24 HELLP syndrome, complicating childbirth (principal); N17.9 Acute kidney failure, unspecified; O62.1 Secondary uterine inertia; O99.284 Endocrine, nutritional and metabolic diseases complicating childbirth; E83.41 Hypermagnesemia; Z3A.39 39 weeks gestation of pregnancy; Z37.0 Single live birth; Z79.899 Other long term (current) drug therapy